=== PATIENT | male | born 1940 | race Caucasian/White ===

== ENCOUNTER 2019-02-02 01:34 | Emergency (ER) | payer MEDICARE, BC ==
--- NOTE | 2019-02-02 01:54 | EDM.PDOC ---
ED HPI GENERAL MEDICAL PROBLEM - General Chief Complaint: Abdominal Pain Stated Complaint: ABDOMINAL PAIN Time Seen by Provider: 02/02/19 01:54 - History of Present Illness INITIAL COMMENTS - FREE TEXT/NARRATIVE: 79-year-old male presents emergency room with abdominal pain. This started about mid day today after eating. His ate the same thing in is not feeling poorly in any way. The patient has had some nausea and vomiting. Last BM was this morning he cannot recall the last time was he passes gas but this does not seem unusual for him. He describes the pain is been very umbilical. He developed some nausea and vomiting this evening vomited a few times he's had no diarrhea or constipation Middle Abdominal Pain Score (Numeric/FACES): 6 - Related Data Allergies Allergy/AdvReac Type Severity Reaction Status Date / Time No Known Allergies Allergy Verified 02/02/19 01:41 Home Meds: Home Meds Acetaminophen/HYDROcodone [[place] 325-5 MG] 1 tab PO Q6H PRN #10 tablet 02/02/19 [Rx] Aspirin [Halfprin] 81 mg PO DAILY 02/02/19 [History] Levothyroxine [Synthroid] 88 mcg PO DAILY 02/02/19 [History] Losartan [Cozaar] 50 mg PO DAILY 02/02/19 [History] Ondansetron [Zofran ODT] 4 mg PO Q4H PRN #10 tab.dis 02/02/19 [Rx] metFORMIN HCl [Metformin HCl] 1,000 mg PO BID 02/02/19 [History] metFORMIN HCl [Metformin HCl] 500 mg PO Q12H #30 tablet 02/02/19 [Rx] ED ROS GENERAL - Review of Systems Review Of Systems: See Below Constitutional: Reports: No Symptoms HEENT: Reports: No Symptoms Respiratory: Reports: No Symptoms Cardiovascular: Reports: No Symptoms Endocrine: Reports: No Symptoms GI/Abdominal: Reports: Abdominal Pain, Nausea, Vomiting : Reports: No Symptoms Musculoskeletal: Reports: No Symptoms Skin: Reports: No Symptoms Neurological: Reports: No Symptoms Psychiatric: Reports: No Symptoms ED EXAM, GI/ABD - Physical Exam Exam: See Below Exam Limited By: No Limitations General Appearance: Alert, WD/WN Head: Atraumatic, Normocephalic Respiratory/Chest: No Respiratory Distress, Lungs Clear, Normal Breath Sounds, No Accessory Muscle Use, Chest Non-Tender Cardiovascular: Normal Peripheral Pulses, Regular Rate, Rhythm, No Edema, No Murmur GI/Abdominal Exam: Normal Bowel Sounds, Other (He has some vague tenderness with encompasses most the abdomen involving all 4 quadrants no appreciable rebound or guarding) Extremities: Normal Inspection, Non-Tender Neurological: Alert, Oriented, Normal Cognition EKG INTERPRETATION EKG Date: 02/02/19 Rhythm: Other (Normal sinus rhythm with a single PAC and single PVC) [place]: Normal P-Wave: Present QRS: Other (Interventricular conduction delay) ST-T: Other (Nonspecific nondiagnostic changes) QT: Normal Comparison: NA - No Prior EKG Course - Vital Signs Last Recorded V/S: Last Vital Signs Temp 36.2 C 02/02/19 01:38 Pulse 75 02/02/19 01:38 Resp 16 02/02/19 01:38 BP 179/79 H 02/02/19 01:38 Pulse Ox 97 02/02/19 01:38 - Orders/Labs/Meds Orders: Active Orders 24 hr Category Date Time Status EKG Documentation Completion [RC] STAT Care 02/02/19 06:05 Active Abdomen 2V AP Flat Upright [CR] Stat Exams 02/02/19 03:12 Taken Abdomen Pelvis wo Cont [CT] Stat Exams 02/02/19 05:11 Taken URINALYSIS W/MICROSCOPIC [UA W/MICROSCOPIC] [URIN] Stat Lab 02/02/19 02:12 Ordered Sodium Chloride 0.9% [Normal Saline] 1,000 ml Med 02/02/19 02:15 Active IV ASDIRECTED Medication Orders Sodium Chloride (Normal Saline) 1,000 mls @ 125 mls/hr IV ASDIRECTED FRANKY Labs: Laboratory Tests 02/02/19 02/02/19 02/02/19 Range/Units 01:43 01:43 06:13 WBC 11.58 H (4.23-9.07) K/mm3 RBC 3.97 L (4.63-6.08) M/mm3 Hgb 12.2 L (13.7-17.5) gm/L Hct 35.9 L (40.1-51.0) % MCV 90.4 (79.0-92.2) fl MCH 30.7 (25.7-32.2) pg MCHC 34.0 (32.2-35.5) g/dl RDW Std Deviation 41.8 (35.1-43.9) fL Plt Count 255 (163-337) K/mm3 MPV 10.3 (9.4-12.3) fl Neutrophils % (Manual) 80 H (40-60) % Band Neutrophils % 7 (0-10) % Lymphocytes % (Manual) 5 L (20-40) % Atypical Lymphs % 0 % Monocytes % (Manual) 6 (2-10) % Eosinophils % (Manual) 2 (0.8-7.0) % Basophils % (Manual) 0 L (0.2-1.2) Toxic Granulation 1+ slight Platelet Estimate Adequate Plt Morphology Comment Normal RBC Morph Comment Normal Sodium 136 (136-145) mEq/L Potassium 4.6 (3.5-5.1) mEq/L Chloride 101 (98-107) mEq/L Carbon Dioxide 24 (21-32) mEq/L Anion Gap 15.6 H (5-15) BUN 53 H (7-18) mg/dL Creatinine 1.9 H (0.7-1.3) mg/dL Est Cr Clr Drug Dosing 33.62 mL/min Estimated GFR (MDRD) 35 (>60) mL/min BUN/Creatinine Ratio 27.9 H (14-18) Glucose 169 H (83-115) mg/dL Calcium 9.5 (8.5-10.1) mg/dL Total Bilirubin 0.4 (0.2-1.0) mg/dL AST 26 (15-37) U/L ALT 37 (16-63) U/L Alkaline Phosphatase 83 (46-116) U/L Troponin I < 0.017 (0.00-0.056) ng/mL Total Protein 7.7 (6.4-8.2) g/dl Albumin 3.8 (3.4-5.0) g/dl Globulin 3.9 gm/dL Albumin/Globulin Ratio 1.0 (1-2) Lipase 124 (73-393) U/L Meds: Medications Generic Name Dose Route Start Last Admin Trade Name Freq PRN Reason Stop Dose Admin Sodium Chloride 1,000 mls @ 125 mls/hr 02/02/19 02:15 Normal Saline IV ASDIRECTED FRANKY Discontinued Medications Generic Name Dose Route Start Last Admin Trade Name Freq PRN Reason Stop Dose Admin Fentanyl 50 mcg 02/02/19 04:13 02/02/19 04:20 Sublimaze IVPUSH 02/02/19 04:14 50 mcg ONETIME ONE Administration Sodium Chloride 500 mls @ 999 mls/hr 02/02/19 02:10 02/02/19 02:25 Normal Saline IV 02/02/19 02:40 999 mls/hr .BOLUS ONE Administration Ondansetron HCl 4 mg 02/02/19 02:20 02/02/19 02:25 Zofran IVPUSH 02/02/19 02:21 4 mg ONETIME ONE Administration Ondansetron HCl 4 mg 02/02/19 04:04 02/02/19 04:08 Zofran IVPUSH 02/02/19 04:05 4 mg ONETIME ONE Administration - Re-Assessments/Exams Free Text/Narrative Re-Assessment/Exam: 02/02/19 05:36 CT exam is on hold simply because his creatinine is 1.9. I did get a KUB and an upright that shows a nonspecific ileus it looks to have fairly full stool pattern however with the residual oral contrast this is hard to be certain the patient has no fecal matter in the rectum I cannot exclude a obstruction in the early phases side had virtual radiologic look at the films and agreed on an ileus at this point we'll go ahead and proceed with a CT with no IV contrast which will limit the study however he still has pain a little bit better with medication the pain seems fairly constant does not change before or after vomiting. 02/02/19 06:06 CT exam is pretty nonspecific gallbladders show some distention possible bowel wall versus gallbladder wall thickening. Appendix looks normal. Scattered advancing age diabetic I'm going to check a troponin and EKG before discharge home. 02/02/19 07:06 EKG has some nondiagnostic changes but not felt to represent any acute ischemia. Troponin is negative. Discussed ordering a gallbladder ultrasound the patient is why foot like to hold off on this did discuss metformin as his GFR is now 35 and creatinine is up to 1.9 from 1.1 in 2014. If his GFR does not improve it is reasonable to consider stopping the metformin altogether for now were negative decrease his dose to 500 mg twice daily. The patient and his have been told no uncertain terms his renal function needs to be watched very closely. In my own mind I would stop the metformin altogether however he will be started on prednisone when he is feeling better for his PMR which will have a detrimental effect to his blood sugar control. The patient needs to follow-up with his regular doctor and discuss this fairly soon I encouraged him to drink more water and decreased on the caffeine. It is quite plausible that he has a gastroenteritis and resultant stomach pain he'll be discharged with a few pain pills and Zofran so he can continue to push the fluids. Departure - Departure Time of Disposition: 07:16 Disposition: Admitted As Inpatient 68 Clinical Impression: Abdominal pain of unknown cause, Acute gastroenteritis, Renal insufficiency - Discharge Information Prescriptions: Acetaminophen/HYDROcodone [[place] 325-5 MG] 1 tab PO Q6H PRN #10 tablet PRN Reason: Abdominal Pain metFORMIN HCl [Metformin HCl] 500 mg PO Q12H #30 tablet Ondansetron [Zofran ODT] 4 mg PO Q4H PRN #10 tab.dis PRN Reason: Nausea/Vomiting Instructions: Viral Gastroenteritis, Adult, [id number], Chronic Kidney Disease, Adult Referrals: Charbel Ni MD [Primary Care Provider] - Forms: ED Department Discharge Additional Instructions: Return to the emergency room with any questions or problems. Return in 24 hours if not improving. Return sooner if getting worse. While here in the emergency room it was discovered that your kidney function is deteriorating. The cause of this is unclear could be dehydration to some degree it is strongly recommended you cut back on your caffeine and drink plenty of fluids. Because of this deteriorating kidney function your metformin will be decreased to 500 mg twice a day if your kidney function deteriorates anymore we will have to stop the metformin, however anticipating you been started on prednisone we' ll continue with the lower dose. It is essential that you discuss this with your regular doctor and he will need to monitor your kidney function very closely. For the abdominal discomfort use the Zofran for nausea control and continue to push fluids for the discomfort use the [place], or hydrocodone one every 6 hours as needed. If using the pain medication allow 12 hours after using it before driving or returning to work or operating any potentially hazardous equipment. If this abdominal discomfort continues consider having a gallbladder ultrasound as there was some potential abnormalities noted on the gallbladder with a CT scan. - My Orders Last 24 Hours: My Active Orders 02/02/19 02:12 URINALYSIS W/MICROSCOPIC [UA W/MICROSCOPIC] [URIN] Stat 02/02/19 02:15 Sodium Chloride 0.9% [Normal Saline] 1,000 ml IV ASDIRECTED 02/02/19 03:12 Abdomen 2V AP Flat Upright [CR] Stat 02/02/19 05:11 Abdomen Pelvis wo Cont [CT] Stat 02/02/19 06:05 EKG Documentation Completion [RC] STAT - Assessment/Plan Last 24 Hours: My Active Orders 02/02/19 02:12 URINALYSIS W/MICROSCOPIC [UA W/MICROSCOPIC] [URIN] Stat 02/02/19 02:15 Sodium Chloride 0.9% [Normal Saline] 1,000 ml IV ASDIRECTED 02/02/19 03:12 Abdomen 2V AP Flat Upright [CR] Stat 02/02/19 05:11 Abdomen Pelvis wo Cont [CT] Stat 02/02/19 06:05 EKG Documentation Completion [RC] STAT
[2019-02-02] MEDS ORDERED: Sodium Chloride 0.9% 500 ML IV ONE (02:10)
[2019-02-02] MEDS ORDERED: Sodium Chloride 0.9% 1,000 ML IV SCH (02:15)
[2019-02-02] MEDS ORDERED: Ondansetron 4 MG/2 ML SDV IVPUSH ONE ×2 (02:20→04:04)
[2019-02-02] MEDS ORDERED: fentaNYL 100 MCG/2 ML SDV IVPUSH ONE (04:13)
--- NOTE | 2019-02-04 06:35 | CR ---
Abdomen: Supine and upright views of the abdomen were obtained. Comparison: No prior abdominal x-ray. Radiation seeds are identified within the prostate gland. Contrast is noted within the small bowel presumably from oral contrast given for CT study. Several air-fluid levels are seen within small bowel which are likely incidental. Small bowel is slightly prominent in size felt to relate to the hypertonic effect of the contrast. Slight degenerative change noted within the spine. No free air is seen. Impression: 1. Contrast with air-fluid levels within small bowel felt to relate to contrast administration for subsequent CT study. 2. Other incidental findings. Diagnostic code #2 I agree with preliminary report from [facility], finalized on 02/02/19, 6:00 AM Central Time
--- NOTE | 2019-02-04 06:35 | CT ---
Abdomen and pelvis Technique: Multiple axial sections were obtained from above the dome of the diaphragm inferiorly through the pubic symphysis. Intravenous contrast not utilized. Oral contrast has been given. Comparison: Prior CT abdomen and pelvis exam of 01/13/14. Interstitial changes are seen within both lung bases most likely due to mild fibrosis. Prior study showed a small 4 mm nodule within the left base which is felt to be stable. Small hiatal hernia is noted. Noncontrast appearance of the liver appears within normal limits. Gallbladder shows no calcified gallstones. No definite inflammatory change is seen around the gallbladder. Spleen appears within normal limits. Adrenal glands show no nodule. Kidneys show no abnormal calcifications. No ureteral dilatation or ureteral stone is seen. Pancreas appears within normal limits. Aorta shows slight ectasia without aneurysm. Atherosclerotic calcification is noted within the aorta and iliac vessels. No retroperitoneal adenopathy or mesenteric abnormalities are seen. No pelvic mass or adenopathy is seen. Incidental fat-containing right umbilical hernia is noted. Radiation implant seeds are seen within the prostate gland. Small bowel appears slightly prominent in size with air-fluid levels most likely due to oral contrast administration. No free fluid or inflammatory change is seen. Appendix is seen and is normal in size. Bone window settings were reviewed which shows scattered degenerative change within the spine. Impression: 1. Incidental findings as noted above. Nothing acute is appreciated. Diagnostic code #2 I mostly agree with preliminary report from [facility] (no gallbladder abnormalities believed to be present), finalized on 02/02/19, 6:42 AM Central Time, code #2
== END 2019-02-02 07:41 | disposition critical access hospital (66) ==
LOC: JD.ED 01:34
DX: K52.9 Noninfective gastroenteritis and colitis, unspecified (principal); N28.9 Disorder of kidney and ureter, unspecified; Z79.82 Long term (current) use of aspirin; Z79.899 Other long term (current) drug therapy
CPT/HCPCS: 36415; 74019; 74176; 80053; 83690; 84484; 85007; 85027; 93005; 96361; 96374; 96375; 96376; 99284; J2405; J3010; J7040

== ENCOUNTER 2019-02-08 08:04 | Day surgery (SDC) | payer MEDICARE, BC ==
[~2019-02-08 08:04] MED LIST: Lactated Ringers 1,000 ML IV SCH; Lidocaine 1%/Sod Bicarbonate in NS 8.4% 1 ML Syringe IDERM PRN; Sodium Chloride 0.9% 10 ML Syringe FLUSH PRN
--- NOTE | 2019-02-08 08:06 | PCM.PREANE ---
Preanesthetic Assessment - Anesthesia/Transfusion/Family Hx Anesthesia History: Prior Anesthesia Without Reaction Family History of Anesthesia Reaction: No Transfusion History: No Prior Transfusion(s) Intubation History: Unknown - Review of Systems General: No Symptoms, Fatigue Pulmonary: No Symptoms (Quit smoking in 1967/Prescribed prednisone: start date: has not started) Cardiovascular: No Symptoms (History of HTN), Lightheadedness Gastrointestinal: Decreased Appetite, Diarrhea, Nausea Neurological: No Symptoms Other: Reports: None (History of prostate Cancer: 2014 seeds placed.), Diabetes (AM blood sugar:126 @0833), Liver Problems (History of elevated liver enzymes/ Elevated BUN/CR), Thyroid Problems (History of hypothyroid) - Physical Assessment NPO Status Date: 02/07/19 NPO Status Time: 19:00 Pulse: 61 O2 Sat by Pulse Oximetry: 98 Respiratory Rate: 16 Blood Pressure: 131/92 Temperature: 36.2 C Height: 1.78 m Weight: 81 kg ASA Class: 2 Mental Status: Alert & Oriented x3 Airway Class: Mallampati = 2 Dentition: Reports: Normal Dentition, Broken Tooth/Teeth (cracked tooth upper left.), Missing Tooth/Teeth, Caries Thyro-Mental Finger Breadths: 3 Mouth Opening Finger Breadths: 3 ROM/Head Extension: Full Lungs: Clear to Auscultation, Normal Respiratory Effort Cardiovascular: Regular Rate, Regular Rhythm, No Murmurs - Lab Values: All lab values reviewed and noted and within acceptable ranges to proceed with scheduled procedure. Elevated BUN, CR noted. - Imaging/EKG Impressions: EKG: SR rate= 86, Borderline first degree AV block, PAC/PVC. - Allergies Allergies/Adverse Reactions: Allergies Allergy/AdvReac Type Severity Reaction Status Date / Time No Known Allergies Allergy Verified 02/02/19 01:41 - Anesthesia Plan Pre-Op Medication Ordered: None - Acknowledgements Anesthesia Type Planned: General Anesthesia Pt an Appropriate Candidate for the Planned Anesthesia: Yes Alternatives and Risks of Anesthesia Discussed w Pt/Guardian: Yes Pt/Guardian Understands and Agrees with Anesthesia Plan: Yes PreAnesthesia Questionnaire Cardiovascular History: Reports: Hypertension Genitourinary History: Reports: Prostate Disorder Other Genitourinary History: prostate CA Endocrine/Metabolic History: Reports: Diabetes, Type II, Hypothyroidism Oncologic (Cancer) History: Reports: Prostate - HOME MEDS Home Medications: Home Meds Acetaminophen/HYDROcodone [[place] 325-5 MG] 1 tab PO Q6H PRN #10 tablet 02/02/19 [Rx] Aspirin [Halfprin] 81 mg PO DAILY 02/02/19 [History] Levothyroxine [Synthroid] 88 mcg PO DAILY 02/02/19 [History] Losartan [Cozaar] 50 mg PO DAILY 02/02/19 [History] Ondansetron [Zofran ODT] 4 mg PO Q4H PRN #10 tab.dis 02/02/19 [Rx] metFORMIN HCl [Metformin HCl] 1,000 mg PO BID 02/02/19 [History] metFORMIN HCl [Metformin HCl] 500 mg PO Q12H #30 tablet 02/02/19 [Rx] - CURRENT (IN HOUSE) MEDS Current Meds: Current Medications Lactated Ringer's (Ringers, Lactated) 1,000 mls @ 125 mls/hr IV ASDIRECTED FRANKY Stop: 02/08/19 23:00 Lidocaine/Sodium Bicarbonate (Buffered Lidocaine 1% In Ns 8.4%) 0.25 ml IDERM ONETIME PRN PRN Reason: Prior to IV Start Stop: 02/08/19 18:00 Sodium Chloride (Saline Flush) 10 ml FLUSH ASDIRECTED PRN PRN Reason: Keep Vein Open Stop: 02/08/19 18:00
[2019-02-08] MEDS ORDERED: fentaNYL 250 MCG/5 ML SDV ONE (08:31)
[2019-02-08] MEDS ORDERED: Midazolam 1 MG/ML 2 ML SDV ONE (08:31)
[2019-02-08] MEDS ORDERED: Lidocaine 1% 4 ML ONE (08:31)
[2019-02-08] MEDS ORDERED: Propofol 200 MG/20 ML SDV ONE (08:31)
[2019-02-08] MEDS ORDERED: Rocuronium 50 MG/5 ML Vial ONE (08:31)
[2019-02-08] MEDS ORDERED: Ondansetron 4 MG/2 ML SDV ONE (08:31)
[2019-02-08] MEDS ORDERED: Bupivacaine 0.5% 30 ML SDV ONE (08:34)
[2019-02-08] MEDS ORDERED: Ampicillin/Sulbactam Na 3 GM in Sodium Chloride 0.9% 100 ML IV ONE (09:02)
[2019-02-08] MEDS ORDERED: ePHEDrine/Normal Saline 25 MG/5 ML Syringe ONE (09:35)
[2019-02-08] MEDS ORDERED: HYDROmorphone 0.5 MG/0.5 ML Syringe ONE ×2 (09:50→10:23)
[2019-02-08] MEDS: Sodium Chloride 0.9% 50 ML SDV ONE ×2 (10:02→10:30)
[2019-02-08] MEDS: Iohexol 300 MG/ML 30 ML Bottle IVPUSH ONE ×2 (10:03→10:30)
[2019-02-08] MEDS ORDERED: Lactated Ringers 1,000 ML ONE (10:10)
[2019-02-08] MEDS ORDERED: fentaNYL 100 MCG/2 ML SDV ONE (10:25)
--- NOTE | 2019-02-08 11:05 | CR ---
Operative cholangiogram: Two fluoroscopic spot views were obtained utilizing C-arm device. CBD appear mildly prominent in size. No filling defects are seen. Contrast noted within the duodenum. No significant intrahepatic biliary opacification is seen on this exam. Impression: 1. No evidence of retained stone within the CBD. Contrast is seen within the duodenum. Diagnostic code #2
--- NOTE | 2019-02-08 11:13 | PCM.OPNOTE ---
- General Post-Op/Procedure Note Date of Surgery/Procedure: 02/08/19 Operative Procedure(s): lap chol with ioc Pre Op Diagnosis: acute cholecystitis cholelithiasis Post-Op Diagnosis: Same Anesthesia Technique: MAC Primary Surgeon: Samuel Chappell EBL in mLs: 15 Complications: None Condition: Good
[2019-02-08] MEDS ORDERED: fentaNYL 100 MCG/2 ML SDV IVPUSH PRN (11:22)
--- NOTE | 2019-02-08 11:23 | PCM.POSTAN ---
POST ANESTHESIA ASSESSMENT - MENTAL STATUS Mental Status: Alert, Oriented - VITAL SIGNS Pulse Rate: 74 SaO2: 93 Resp Rate: 10 Blood Pressure: 157/67 Temperature: 36.3 C - RESPIRATORY Respiratory Status: Respiratory Rate WNL, Airway Patent, O2 Saturation Stable, Supplemental Oxygen - CARDIOVASCULAR CV Status: Pulse Rate WNL, Blood Pressure Stable - GASTROINTESTINAL GI Status: No Symptoms - PAIN Pain Score: 0 - POST OP HYDRATION Hydration Status: Adequate & Stable - OBSERVATIONS Free Text/Narrative:: no anesthesia complications noted
--- NOTE | 2019-02-08 12:27 | PCM48HPAN ---
Post Anesthesia Note - EVALUATION WITHIN 48HRS OF ANESTHETIC Vital Signs in Normal Range: Yes Patient Participated in Evaluation: Yes Respiratory Function Stable: Yes Airway Patent: Yes Cardiovascular Function Stable: Yes Hydration Status Stable: Yes Pain Control Satisfactory: Yes Nausea and Vomiting Control Satisfactory: Yes Mental Status Recovered: Yes
[2019-02-08] MEDS ORDERED: Acetaminophen/HYDROcodone 325-5 MG Tab PO PRN (13:35)
--- NOTE | 2019-02-11 10:14 | OR ---
DATE OF OPERATION: 02/08/2019 SURGEON: Samuel Chappell MD PREOPERATIVE DIAGNOSIS: Acute cholecystitis and cholelithiasis. POSTOPERATIVE DIAGNOSIS: Acute cholecystitis and cholelithiasis. OPERATION PERFORMED: Laparoscopic cholecystectomy with intraoperative cholangiogram. ESTIMATED BLOOD LOSS: About 15 mL. FINDINGS: Inflamed gallbladder, quite thickened with omentum covering the dome of the gallbladder. Cholangiogram showed right and left hepatic ducts with free flow into the duodenum. DESCRIPTION OF PROCEDURE: The patient was taken to the operating room, placed in supine position, given a general anesthetic and intubated. Antibiotics were given. SCDs were placed. The abdomen was clipped and prepped with chlorhexidine, alcohol prepped, and draped off in a sterile fashion. An incision was made just below the umbilicus and using a 5 mm Optiport, abdominal cavity was entered. Fab trocar was entered. Pneumoperitoneum was established and a 5 mm 0-degree camera was inserted into the abdominal cavity. It was scanned showing the gallbladder in the right upper quadrant with omentum covering the fundus. A 10 mm trocar was placed in the epigastric position and 5 mm trocar placed in right upper quadrant and one in the right lower quadrant. The patient was placed in reverse Trendelenburg with leftward tilt. The omentum over the dome of the gallbladder was dissected off with electrocautery and the gallbladder was then aspirated and retracted in a cephalad position. Abbe pouch was dissected free and retracted in caudal position. Calot triangle was then dissected out showing the Calot node, the cystic duct-Abbe pouch junction, and the cystic artery and the cystic plate. Once the anatomy was clearly identified, 2 clips were placed on the cystic artery and the cystic artery was cut and Calot triangle dissected out freely. The cystic duct-Abbe pouch junction secured with a clip and the cystic artery was opened. A cholangiocatheter was inserted and secured with a clip, and a cholangiogram was obtained showing the above findings. Contrast material was used diluted with equal parts of saline and the C-arm was used to get the picture. The above noted was found. The cholangiocatheter was removed along with the clip. A clip was placed on the cystic duct and cut and then the Endoloop placed just below the clip. The gallbladder was then dissected from its attachment to the liver, placed in an Endobag, and removed from the abdominal cavity. Camera and pneumoperitoneum re-established and the area was irrigated. Excellent hemostasis secured. This completed the intraabdominal portion of the procedure. The pneumoperitoneum and ports were removed, and the skin of port closed with subdermal 4-0 Dexon suture. Steri-Strips, , and sterile dressing placed. The patient tolerated the procedure, sent to recovery room in a stable condition, will be followed up in the clinic. Specimen sent to pathology in a labeled container. ANESTHESIA: General MMODAL /[id number]
== END 2019-02-08 14:05 | disposition home or self-care (01) ==
LOC: JD.SDS 08:04
PROVIDERS: ATTEND Surgery
DX: K80.12 Calculus of gallbladder with acute and chronic cholecystitis without obstruction (principal); I10 Essential (primary) hypertension; E11.9 Type 2 diabetes mellitus without complications; E03.9 Hypothyroidism, unspecified; Z87.891 Personal history of nicotine dependence; Z85.46 Personal history of malignant neoplasm of prostate; Z79.82 Long term (current) use of aspirin; Z79.84 Long term (current) use of oral hypoglycemic drugs; Z79.899 Other long term (current) drug therapy
CPT/HCPCS: 47563; 74300; 82962; A9270; J1170; J2001; J2250; J2405; J2704; J3010; J3490; J7050; J7120; Q9965; 00790

== ENCOUNTER 2024-05-31 16:39 | Inpatient (IN) | payer MEDICARE, BC ==
[2024-05-31 19:13] LABS: BASOPHILS PERCENT AUTO 0.2 % (0.0-1.0); EOSINOPHILS ABSOLUTE AUTO 0.1 K/mm3 (0.0-0.4); EOSINOPHILS PERCENT AUTO 2.3 % (0.0-6.0); HEMATOCRIT 29.6 % (42.0-52.0); IMMATURE GRAN ABSOLUTE AUTO 0.02 K/mm3 (0.00-0.05); IMMATURE GRAN PERCENT AUTO 0.3 % (0.0-0.4); LYMPHOCYTES ABSOLUTE AUTO 0.2 K/mm3 (1.0-4.8); LYMPHOCYTES PERCENT AUTO 2.7 % (24.0-44.0); MEAN CORPUSCULAR HEMOGLOBIN 31.3 pg (28.0-32.0); MEAN CORPUSCULAR HGB CONC 33.8 g/dl (32.0-36.0); MEAN CORPUSCULAR VOLUME 92.8 fl (83.0-99.0); MEAN PLATELET VOLUME 12.1 fl (9.4-12.4); MONOCYTES ABSOLUTE AUTO 0.2 K/mm3 (0.0-0.8); NEUTROPHILS ABSOLUTE AUTO 5.4 K/mm3 (1.8-7.7); NEUTROPHILS PERCENT AUTO 90.5 % (41.0-71.0); PLATELET COUNT,PLT 34 K/mm3 (150-400); RED BLOOD CELL COUNT 3.19 M/mm3 (4.52-5.90); WHITE BLOOD CELL COUNT,WBC 5.97 K/mm3 (3.9-11.3)
[2024-05-31 19:39] LABS: APPEARANCE,URINE SLT CLOUDY (Clear); BILIRUBIN,URINE NEGATIVE (Negative); COLOR,URINE YELLOW (Yellow); GLUCOSE,URINE NEGATIVE (Negative); KETONES,URINE NEGATIVE (Negative); LEUKOCYTE ESTERASE,URINE 1+ (Negative); NITRITE,URINE NEGATIVE (Negative); OCCULT BLOOD,URINE 2+ (Negative); PH,URINE 5.5 (5.0-8.0); PROTEIN,URINE 1+ (Negative); UROBILINOGEN,URINE 0.2 (0.2-1.0)
[2024-05-31 19:40] LABS: A/G RATIO 0.4 (1-2); ALBUMIN 1.8 g/dl (3.4-5.0); ANION GAP 16.3 (5-15); BILIRUBIN TOTAL 0.3 mg/dL (0.2-1.0); BUN/CREATININE RATIO 22.7 (14-18); C-REACTIVE PROTEIN 17.08 mg/dL (<0.30); CALCIUM 7.5 mg/dL (8.5-10.1); CREATININE 2.6 mg/dL (0.7-1.3); EST CRCL DRUG DOSING (CG) 21.19 mL/min; MAGNESIUM 1.6 mg/dL (1.8-2.4); POTASSIUM,K 3.3 mEq/L (3.5-5.1); PROTEIN TOTAL,TP 6.8 g/dl (6.4-8.2)
[2024-05-31 19:50] LABS: AMORPHOUS SEDIMENT,URINE FEW /hpf (NOT SEEN); BACTERIA,URINE MODERATE /hpf (FEW); MUCUS,URINE MODERATE /hpf (FEW); WBC,URINE 30-40 /hpf (0-5)
[2024-05-31] MEDS: cefTRIAXone 1 GM in Sodium Chloride 0.9% 100 ML IV ONE (21:06)
[2024-05-31] MEDS: Sodium Chloride 0.9% 1,000 ML IV ONE (21:06)
[2024-05-31] MEDS ORDERED: Ondansetron 4 MG/2 ML SDV IVPUSH PRN (23:12)
[2024-05-31] MEDS: Sodium Chloride 0.9% 1,000 ML IV SCH (23:23)
[2024-06-01 05:34] LABS: HEMATOCRIT 27.7 % (42.0-52.0); HEMOGLOBIN 9.3 gm/dl (14.0-18.0); MEAN CORPUSCULAR HEMOGLOBIN 31.2 pg (28.0-32.0); MEAN CORPUSCULAR HGB CONC 33.6 g/dl (32.0-36.0); MEAN PLATELET VOLUME 12.6 fl (9.4-12.4); PLATELET COUNT,PLT 36 K/mm3 (150-400); RED BLOOD CELL COUNT 2.98 M/mm3 (4.52-5.90); WHITE BLOOD CELL COUNT,WBC 5.64 K/mm3 (3.9-11.3)
[2024-06-01 05:52] LABS: A/G RATIO 0.3 (1-2); ALBUMIN 1.6 g/dl (3.4-5.0); ANION GAP 15.3 (5-15); BILIRUBIN TOTAL 0.3 mg/dL (0.2-1.0); BUN/CREATININE RATIO 24.1 (14-18); CALCIUM 7.3 mg/dL (8.5-10.1); CREATININE 2.2 mg/dL (0.7-1.3); EST CRCL DRUG DOSING (CG) 25.05 mL/min; POTASSIUM,K 3.3 mEq/L (3.5-5.1); PROTEIN TOTAL,TP 6.6 g/dl (6.4-8.2)
[2024-06-01] MEDS: Magnesium Sulfate/Water 2 GM in Premix Bag 1 BAG IV ONE (09:08)
[2024-06-01] MEDS: Potassium Chloride 20 MEQ Tab.ER PO ONE (09:09)
[2024-06-01] MEDS ORDERED: 50% Dextrose in Water 50 ML Syringe IVPUSH PRN (09:38)
[2024-06-01] MEDS ORDERED: Enoxaparin 30 MG/0.3 ML Syringe SUBCUT SCH (09:45)
[2024-06-01 10:00] LABS: URIC ACID 5.2 mg/dL (3.5-7.2)
[2024-06-01 10:13] LABS: CORONAVIRUS COVID-19 NAA NEGATIVE (NEGATIVE); INFLUENZA A NAA NEGATIVE (NEGATIVE); RESPIRATORY SYNCYTIAL VIR NAA NEGATIVE (NEGATIVE)
[2024-06-01] MEDS: Fluconazole 100 MG Tab PO SCH (11:44)
[2024-06-01] MEDS: Levothyroxine 25 MCG Tab PO SCH (11:44)
[2024-06-01] MEDS: Acyclovir 200 MG Cap PO SCH (11:44)
[2024-06-01] MEDS: Levothyroxine 112 MCG Tab PO SCH (11:44)
[2024-06-01] MEDS: Insulin Lispro 100 Unit/ML 3 ML KwikPen SUBCUT SCH (11:47)
[2024-06-01] MEDS: Enoxaparin 40 MG/0.4 ML Syringe SUBCUT SCH (19:33)
[2024-06-01] MEDS: cefTRIAXone 1 GM Vial IM SCH (20:51)
[2024-06-01] MEDS: cefTRIAXone 1 GM in Sodium Chloride 0.9% 100 ML IV SCH (20:56)
[2024-06-02] MEDS: Acetaminophen 325 MG Tab PO PRN (00:19)
[2024-06-02 05:31] LABS: BASOPHILS PERCENT AUTO 0.2 % (0.0-1.0); EOSINOPHILS ABSOLUTE AUTO 0.1 K/mm3 (0.0-0.4); EOSINOPHILS PERCENT AUTO 2.7 % (0.0-6.0); IMMATURE GRAN ABSOLUTE AUTO 0.03 K/mm3 (0.00-0.05); IMMATURE GRAN PERCENT AUTO 0.6 % (0.0-0.4); LYMPHOCYTES ABSOLUTE AUTO 0.3 K/mm3 (1.0-4.8); LYMPHOCYTES PERCENT AUTO 5.5 % (24.0-44.0); MEAN CORPUSCULAR HEMOGLOBIN 30.8 pg (28.0-32.0); MEAN CORPUSCULAR HGB CONC 33.3 g/dl (32.0-36.0); MEAN CORPUSCULAR VOLUME 92.5 fl (83.0-99.0); MEAN PLATELET VOLUME 11.7 fl (9.4-12.4); MONOCYTES ABSOLUTE AUTO 0.3 K/mm3 (0.0-0.8); MONOCYTES PERCENT AUTO 5.5 % (0.0-8.0); NEUTROPHILS ABSOLUTE AUTO 4.2 K/mm3 (1.8-7.7); NEUTROPHILS PERCENT AUTO 85.5 % (41.0-71.0); PLATELET COUNT,PLT 50 K/mm3 (150-400); RED BLOOD CELL COUNT 2.92 M/mm3 (4.52-5.90); WHITE BLOOD CELL COUNT,WBC 4.89 K/mm3 (3.9-11.3)
[2024-06-02 05:52] LABS: A/G RATIO 0.4 (1-2); ALBUMIN 1.5 g/dl (3.4-5.0); ANION GAP 14.3 (5-15); BILIRUBIN TOTAL 0.2 mg/dL (0.2-1.0); BUN/CREATININE RATIO 22.2 (14-18); C-REACTIVE PROTEIN 8.3 mg/dL (<0.30); CALCIUM 7.3 mg/dL (8.5-10.1); CREATININE 1.8 mg/dL (0.7-1.3); EST CRCL DRUG DOSING (CG) 30.61 mL/min; POTASSIUM,K 3.3 mEq/L (3.5-5.1); PROTEIN TOTAL,TP 5.7 g/dl (6.4-8.2)
[2024-06-02 05:58] LABS: SLIDE REVIEW ABNORMAL SMEAR
[2024-06-02] MEDS: Potassium Chloride 20 MEQ Tab.ER PO ONE (08:51)
[2024-06-02] MEDS: atorvaSTATin 20 MG Tab PO SCH (08:52)
[2024-06-02] MEDS: Allopurinol 300 MG Tab PO SCH (14:51)
[2024-06-02] MEDS: Sodium Chloride 0.9% 1,000 ML IV SCH (20:33)
[2024-06-02] MEDS: Melatonin 3 MG Tab PO SCH (20:47)
[2024-06-02] MEDS: Loperamide 2 MG Cap PO ONE (21:53)
[2024-06-03 05:31] LABS: EOSINOPHILS ABSOLUTE AUTO 0.2 K/mm3 (0.0-0.4); EOSINOPHILS PERCENT AUTO 3.9 % (0.0-6.0); HEMATOCRIT 28.7 % (42.0-52.0); HEMOGLOBIN 9.6 gm/dl (14.0-18.0); IMMATURE GRAN ABSOLUTE AUTO 0.02 K/mm3 (0.00-0.05); IMMATURE GRAN PERCENT AUTO 0.4 % (0.0-0.4); LYMPHOCYTES ABSOLUTE AUTO 0.4 K/mm3 (1.0-4.8); LYMPHOCYTES PERCENT AUTO 7.6 % (24.0-44.0); MEAN CORPUSCULAR HEMOGLOBIN 31.6 pg (28.0-32.0); MEAN CORPUSCULAR HGB CONC 33.4 g/dl (32.0-36.0); MEAN CORPUSCULAR VOLUME 94.4 fl (83.0-99.0); MEAN PLATELET VOLUME 12.2 fl (9.4-12.4); MONOCYTES ABSOLUTE AUTO 0.4 K/mm3 (0.0-0.8); MONOCYTES PERCENT AUTO 7.2 % (0.0-8.0); NEUTROPHILS PERCENT AUTO 80.9 % (41.0-71.0); PLATELET COUNT,PLT 67 K/mm3 (150-400); RED BLOOD CELL COUNT 3.04 M/mm3 (4.52-5.90); WHITE BLOOD CELL COUNT,WBC 4.89 K/mm3 (3.9-11.3)
[2024-06-03 05:54] LABS: A/G RATIO 0.4 (1-2); ALBUMIN 1.6 g/dl (3.4-5.0); BILIRUBIN TOTAL 0.2 mg/dL (0.2-1.0); BUN/CREATININE RATIO 21.2 (14-18); C-REACTIVE PROTEIN 5.7 mg/dL (<0.30); CALCIUM 7.4 mg/dL (8.5-10.1); CREATININE 1.7 mg/dL (0.7-1.3); EST CRCL DRUG DOSING (CG) 32.41 mL/min; PROTEIN TOTAL,TP 5.9 g/dl (6.4-8.2)
[2024-06-03 06:27] LABS: SLIDE REVIEW ABNORMAL SMEAR
[2024-06-03] MEDS: Potassium Chloride 10 MEQ in Premix Bag 1 BAG IV SCH (12:34)
[2024-06-03] MEDS ORDERED: Simethicone 80 MG Tab.Chew PO PRN (14:42)
[2024-06-03] MEDS: Potassium Chloride 20 MEQ Tab.ER PO ONE (20:45)
[2024-06-04 05:27] LABS: BUN/CREATININE RATIO 21.3 (14-18); CALCIUM 7.4 mg/dL (8.5-10.1); CREATININE 1.6 mg/dL (0.7-1.3); EST CRCL DRUG DOSING (CG) 34.44 mL/min
[2024-06-04 07:32] LABS: BASOPHILS PERCENT AUTO 0.3 % (0.0-1.0); EOSINOPHILS ABSOLUTE AUTO 0.2 K/mm3 (0.0-0.4); EOSINOPHILS PERCENT AUTO 7.3 % (0.0-6.0); HEMATOCRIT 28.6 % (42.0-52.0); HEMOGLOBIN 9.5 gm/dl (14.0-18.0); IMMATURE GRAN ABSOLUTE AUTO 0.01 K/mm3 (0.00-0.05); IMMATURE GRAN PERCENT AUTO 0.3 % (0.0-0.4); LYMPHOCYTES ABSOLUTE AUTO 0.3 K/mm3 (1.0-4.8); LYMPHOCYTES PERCENT AUTO 8.5 % (24.0-44.0); MEAN CORPUSCULAR HEMOGLOBIN 31.4 pg (28.0-32.0); MEAN CORPUSCULAR HGB CONC 33.2 g/dl (32.0-36.0); MEAN CORPUSCULAR VOLUME 94.4 fl (83.0-99.0); MEAN PLATELET VOLUME 11.6 fl (9.4-12.4); MONOCYTES ABSOLUTE AUTO 0.4 K/mm3 (0.0-0.8); MONOCYTES PERCENT AUTO 11.2 % (0.0-8.0); NEUTROPHILS ABSOLUTE AUTO 2.4 K/mm3 (1.8-7.7); NEUTROPHILS PERCENT AUTO 72.4 % (41.0-71.0); PLATELET COUNT,PLT 85 K/mm3 (150-400); RED BLOOD CELL COUNT 3.03 M/mm3 (4.52-5.90)
[2024-06-04 07:44] LABS: SLIDE REVIEW ABNORMAL SMEAR
[2024-06-04] MEDS: Potassium Chloride 10 MEQ in Premix Bag 1 BAG IV SCH (09:50)
[2024-06-04] MEDS: Enoxaparin 40 MG/0.4 ML Syringe SUBCUT SCH (09:55)
[2024-06-04] MEDS: Sodium Chloride 0.9% 500 ML IV ONE (09:59)
[2024-06-04] MEDS: Potassium Chloride 10 MEQ in Premix Bag 1 BAG IV ONE (15:27)
[2024-06-04] MEDS: Magnesium Sulfate/Water 2 GM in Premix Bag 1 BAG IV ONE ×2 (15:31→16:31)
[2024-06-05 04:56] LABS: EOSINOPHILS ABSOLUTE AUTO 0.2 K/mm3 (0.0-0.4); EOSINOPHILS PERCENT AUTO 8.7 % (0.0-6.0); HEMATOCRIT 27.1 % (42.0-52.0); IMMATURE GRAN ABSOLUTE AUTO 0.01 K/mm3 (0.00-0.05); IMMATURE GRAN PERCENT AUTO 0.4 % (0.0-0.4); LYMPHOCYTES ABSOLUTE AUTO 0.3 K/mm3 (1.0-4.8); LYMPHOCYTES PERCENT AUTO 11.8 % (24.0-44.0); MEAN CORPUSCULAR HEMOGLOBIN 31.4 pg (28.0-32.0); MEAN CORPUSCULAR HGB CONC 33.2 g/dl (32.0-36.0); MEAN CORPUSCULAR VOLUME 94.4 fl (83.0-99.0); MEAN PLATELET VOLUME 11.6 fl (9.4-12.4); MONOCYTES ABSOLUTE AUTO 0.4 K/mm3 (0.0-0.8); MONOCYTES PERCENT AUTO 15.7 % (0.0-8.0); NEUTROPHILS ABSOLUTE AUTO 1.6 K/mm3 (1.8-7.7); NEUTROPHILS PERCENT AUTO 63.4 % (41.0-71.0); PLATELET COUNT,PLT 106 K/mm3 (150-400); RED BLOOD CELL COUNT 2.87 M/mm3 (4.52-5.90); WHITE BLOOD CELL COUNT,WBC 2.54 K/mm3 (3.9-11.3)
[2024-06-05 05:24] LABS: A/G RATIO 0.4 (1-2); ALBUMIN 1.4 g/dl (3.4-5.0); ANION GAP 14.2 (5-15); BILIRUBIN TOTAL 0.2 mg/dL (0.2-1.0); BUN/CREATININE RATIO 22.7 (14-18); CALCIUM 7.3 mg/dL (8.5-10.1); CREATININE 1.5 mg/dL (0.7-1.3); EST CRCL DRUG DOSING (CG) 36.73 mL/min; POTASSIUM,K 3.2 mEq/L (3.5-5.1); PROTEIN TOTAL,TP 5.2 g/dl (6.4-8.2)
[2024-06-05] MEDS: Potassium Chloride 20 MEQ Tab.ER PO ONE ×2 (13:05→13:21)
[2024-06-05] MEDS: Magnesium Sulfate/Water 4 GM in Premix Bag 1 BAG IV ONE (13:21)
[2024-06-05] MEDS: Sodium Chloride 0.9% 500 ML IV ONE (13:21)
[2024-06-05] MEDS: Folic Acid 1 MG Tab PO SCH (20:44)
== END 2024-06-05 19:37 | disposition home health service (06) | DRG 690 ==
LOC: JD.ED 16:39 → JD.MS 21:31
PROVIDERS: ADMIT Family Medicine; ATTEND Family Medicine
DX: N39.0 Urinary tract infection, site not specified (principal); N28.9 Disorder of kidney and ureter, unspecified; N30.00 Acute cystitis without hematuria; N17.9 Acute kidney failure, unspecified; E11.9 Type 2 diabetes mellitus without complications; I10 Essential (primary) hypertension; C88.0 Waldenstrom macroglobulinemia; E87.6 Hypokalemia; E03.9 Hypothyroidism, unspecified; E86.0 Dehydration; H54.7 Unspecified visual loss; E83.42 Hypomagnesemia; E78.5 Hyperlipidemia, unspecified; E11.40 Type 2 diabetes mellitus with diabetic neuropathy, unspecified; D69.6 Thrombocytopenia, unspecified; Z97.3 Presence of spectacles and contact lenses; Z85.46 Personal history of malignant neoplasm of prostate; Z79.82 Long term (current) use of aspirin; Z79.84 Long term (current) use of oral hypoglycemic drugs; Z79.899 Other long term (current) drug therapy; Z79.890 Hormone replacement therapy
CPT/HCPCS: 0241U; 36415; 80048; 80053; 81001; 82550; 82607; 82746; 82947; 83605; 83615; 83735; 84550; 85025; 85027; 85652; 86140; 87040; 87086; 96365; 97112-GP; 97161-GP; 97530-GP; 99285; 99285-25; A9270-GY; J0696; J1650; J1815; J3475; J3480; J3490; J7030; J7040